=== PATIENT | female | born 1975 | race Caucasian/White ===

== ENCOUNTER 2021-08-21 11:01 | Emergency (ER) | payer SELFPAY ==
[~2021-08-21] VITALS: Ht 165 cm; Wt 117.0 kg
--- NOTE | 2021-08-21 12:07 | ED General ---
General Chief Complaint: COVID19 Suspect/Confirmed Stated Complaint: SORE THROAT,COUGH,BEDOYA Nursing Triage Note: PT REPORTS COUGH, SORE THROAT, CONGESTION, HEADACHE X1 WEEK. PT WAS LAST TESTED FOR COVID ON 08/19 AND WAS NEGATIVE. PT HAS KNOWN CONTACTS WHO HAVE TESTED POSITIVE. Source of Information: Patient Exam Limitations: No Limitations (MARTINEZ LASSITER APRN) History of Present Illness Date Seen by Provider: Aug 21, 2021 Time Seen by Provider: 12:05 Initial Comments Headache, fever for about a week. 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 Timing/Duration: 1 Week Severity: Moderate Associated Systoms: Cough (MARTINEZ LASSITER APRN) Allergies and Home Medications Allergies Coded Allergies: Sulfa (Sulfonamide Antibiotics) (Verified Allergy, Severe, ANAPHYLAXIS, 09/14/05) carisoprodol (Verified Allergy, Severe, 08/21/21) STOPS BREATHING celecoxib (Verified Allergy, Severe, 08/21/21) STOPS BREATHING cephalexin (Verified Allergy, Mild, 08/21/21) RASH nitrofurantoin (Verified Allergy, Mild, RASH, 09/14/05) morphine (Verified Adverse Reaction, Unknown, 08/21/21) RASH/ITCHY FOR LARGE DOSES Uncoded Allergies: SURF DETERGENT (Allergy, Mild, HIVES, 09/13/05) Patient Home Medication List Home Medication List Reviewed: Yes (MARTINEZ LASSITER APRN) Review of Systems Review of Systems Constitutional: see HPI, fever, malaise, weakness EENTM: see HPI Respiratory: see HPI, cough Cardiovascular: no symptoms reported Genitourinary: no symptoms reported Musculoskeletal: no symptoms reported Skin: no symptoms reported Psychiatric/Neurological: No Symptoms Reported Hematologic/Lymphatic: No Symptoms Reported Immunological/Allergic: no symptoms reported (MARTINEZ LASSITER APRN) Past Xjdpvpv-Xibikf-Hzsust Hx Patient Social History Tobacco Use?: No Substance use?: No Alcohol Use?: Yes Alcohol Frequency: Rarely Pt feels they are or have been: No (MARTINEZ LASSITER APRN) Immunizations Up To Date Second COVID19 Vaccination Dario: SEPTEMBER 2020 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 oz. kg; 42.00 BMI Method: General Appearance: No Apparent Distress, WD/WN HEENT: PERRL/EOMI, Other (DM obscured by cerumen bilaterally) Respiratory: No Accessory Muscle Use, No Respiratory Distress Cardiovascular: Regular Rate, Rhythm, Normal Peripheral Pulses Gastrointestinal: Normal Bowel Sounds, Non Tender, Soft Extremity: Normal Capillary Refill, Normal Inspection Neurologic/Psychiatric: Alert, Oriented x3 Skin: Normal Color, Warm/Dry (MARTINEZ LASSITER APRN) Progress/Results/Core Measures Suspected Sepsis SIRS Temperature: Pulse: 88 Respiratory Rate: 18 Blood Pressure 161 /104 Mean: 123 (MARTINEZ LASSITER APRN) Results/Orders Lab Results Laboratory Tests Test 08/21/21 11:24 Range/Units Influenza Type A (RT-PCR) Detected H Not Detecte Influenza Type B (RT-PCR) Not Detected Not Detecte SARS-CoV-2 RNA (RT-PCR) Not Detected Not Detecte (CHAVA GOODE MD) Vital Signs/I&O 08/21/21 08/21/21 08/21/21 11:12 12:07 12:10 Temp 36.7 36.7 Pulse 88 90 Resp 18 18 B/P (MAP) 161/104 (123) 168/96 Pulse Ox 100 100 O2 Delivery Room Air Room Air Room Air (CHAVA GOODE MD) Vital Signs/I&O Capillary Refill : Less Than 3 Seconds (MARTINEZ LASSITER APRN) Blood Pressure Mean: 123 Departure Impression Primary Impression: Influenza A Disposition: 01 HOME, SELF-CARE Condition: Stable Departure-Patient Inst. Decision time for Depature: 12:06 (MARTINEZ LASSITER APRN) Referrals: NO,LOCAL PHYSICIAN (PCP/Family) Primary Care Physician Patient Instructions: Flu, Adult ED Add. Discharge Instructions: 1. Tylenol and ibuprofen for pain and fever control. Return to ER for any concerns. All discharge instructions reviewed with patient and/or family. Voiced understanding. Work/School Note: Work Release Form Date Seen in the Emergency Department: Aug 21, 2021 Return to Work: Aug 24, 2021 ATTENDING PHYSICIAN NOTE: I was physically present as attending physician in the emergency department during the care of this patient, but I was not directly involved in the decision making or delivery of care for this patient. (CHAVA GOODE MD) MARTINEZ LASSITER APRN Aug 21, 2021 12:07 CHAVA GOODE MD Aug 21, 2021 19:09
[2021-08-21 12:10] VITALS: BP 168/96
== END 2021-08-21 12:12 | disposition home or self-care (01) ==
LOC: ER 11:01
DX: J10.1 Influenza due to other identified influenza virus with other respiratory manifestations (principal); Z20.822 Contact with and (suspected) exposure to COVID-19
CPT/HCPCS: 87636; 99283

== ENCOUNTER 2021-09-06 21:05 | Emergency (ER) | payer SELFPAY ==
[2021-09-06] MEDS ORDERED: AMOX500C2 PO (21:22)
[2021-09-06] MEDS ORDERED: METH4TAB10 PO (21:22)
--- NOTE | 2021-09-06 21:22 | ED General ---
General Chief Complaint: General Problems/Pain Stated Complaint: SOB/CHEST BURNING/COUGH/SORE THROAT X 1 MONTH Source of Information: Patient Exam Limitations: No Limitations (MARTINEZ LASSITER APRN) History of Present Illness Date Seen by Provider: Sep 06, 2021 Time Seen by Provider: 21:19 Initial Comments To ER by private vehicle with reports of ongoing shortness of breath chest burning cough that is nonproductive. She was seen here 2 weeks ago diagnosed with influenza a tested negative for Covid. However she fails to improve and tonight she noticed some black mold in her house. She notified her landlord of it but is scared that this might be contributing to her symptoms. No fevers. She does not smoke. Timing/Duration: 1-2 Days Severity: Moderate Associated Systoms: Cough (MARTINEZ LASSITER APRN) Allergies and Home Medications Allergies Coded Allergies: Sulfa (Sulfonamide Antibiotics) (Verified Allergy, Severe, ANAPHYLAXIS, 09/14/05) carisoprodol (Verified Allergy, Severe, 08/21/21) STOPS BREATHING celecoxib (Verified Allergy, Severe, 08/21/21) STOPS BREATHING cephalexin (Verified Allergy, Mild, 08/21/21) RASH nitrofurantoin (Verified Allergy, Mild, RASH, 09/14/05) morphine (Verified Adverse Reaction, Unknown, 08/21/21) RASH/ITCHY FOR LARGE DOSES Uncoded Allergies: SURF DETERGENT (Allergy, Mild, HIVES, 09/13/05) Patient Home Medication List Home Medication List Reviewed: Yes (MARTINEZ LASSITER APRN) Amoxicillin (Amoxicillin) 500 Mg Capsule, 500 MG PO TID Prescribed by: MARTINEZ LASSITER on 09/06/212121 Methylprednisolone (Methylprednisolone Dose Pack) 4 Mg Tab.ds.pk, 4 MG PO UD Prescribed by: MARTINEZ LASSITER on 09/06/212121 Review of Systems Review of Systems Constitutional: see HPI EENTM: see HPI Respiratory: see HPI, cough Cardiovascular: no symptoms reported Genitourinary: no symptoms reported Musculoskeletal: no symptoms reported Skin: no symptoms reported Psychiatric/Neurological: No Symptoms Reported Hematologic/Lymphatic: No Symptoms Reported (MARTINEZ LASSITER APRN) Past Wsxihep-Uqfuwz-Fbzthz Hx Immunizations Up To Date Second COVID19 Vaccination Dario: SEPTEMBER 2020 (MARTINEZ LASSITER APRN) Past Medical History Surgery/Hospitalization HX: NEUROPATHY, ANXIETY/DEPRESSION (MARTINEZ LASSITER APRN) Physical Exam Vital Signs Vital Signs - First Documented (CHAVA GOODE MD) Vital Signs Capillary Refill : (MARTINEZ LASSITER APRN) Height, Weight, BMI Height: '" Weight: lbs. oz. kg; 42.00 BMI Method: General Appearance: No Apparent Distress, WD/WN, Other (Lungs are clear heart rate 95 oxygen 97%. She is hypertensive at 190/110.) Eyes: Bilateral Eye Normal Inspection, Bilateral Eye PERRL, Bilateral Eye EOMI Neck: Full Range of Motion, Normal Inspection Respiratory: No Accessory Muscle Use, No Respiratory Distress Cardiovascular: Regular Rate, Rhythm, Normal Peripheral Pulses Gastrointestinal: Normal Bowel Sounds, Non Tender, Soft Neurologic/Psychiatric: Alert, Oriented x3 Skin: Normal Color, Warm/Dry (MARTINEZ LASSITER APRN) Progress/Results/Core Measures Suspected Sepsis SIRS Temperature: Pulse: Respiratory Rate: Blood Pressure / Mean: (MARTINEZ LASSITER APRN) Results/Orders Vital Signs/I&O 09/06/21 09/06/21 09/06/21 21:14 21:14 22:00 Temp 36.2 36.2 Pulse 97 86 Resp 18 18 B/P (MAP) 193/89 (123) 146/88 Pulse Ox 98 97 O2 Delivery Room Air Room Air Room Air (CHAVA GOODE MD) Vital Signs/I&O Capillary Refill : (MARTINEZ LASSITER APRN) Departure Impression Primary Impression: Bronchitis Disposition: 01 HOME, SELF-CARE Condition: Stable Departure-Patient Inst. Decision time for Depature: 21:21 (MARTINEZ LASSITER APRN) Referrals: NO,LOCAL PHYSICIAN (PCP/Family) Primary Care Physician Patient Instructions: Acute Bronchitis, Adult (DC) Add. Discharge Instructions: 1. Antibiotics and steroids as directed. Inhaler as directed. Follow-up with your doctor later this week. If you do not have one a list has been provided for you. Call one of your choosing to make an appointment to be seen. All discharge instructions reviewed with patient and/or family. Voiced understanding. Scripts Methylprednisolone (Methylprednisolone Dose Pack) 4 Mg Tab.ds.pk 4 MG PO UD for 6 Days, #21 PKG PER DOSE PACK INSTRUCTIONS Prov: MARTINEZ LASSITER APRN 09/06/21 Amoxicillin (Amoxicillin) 500 Mg Capsule 500 MG PO TID, #21 CAP 0 Refills Prov: MARTINEZ LASSITER APRN 09/06/21 ATTENDING PHYSICIAN NOTE: I was physically present as attending physician in the emergency department during the care of this patient, but I was not directly involved in the decision making or delivery of care for this patient. (CHAVA GOODE MD) MARTINEZ LASSITER APRN Sep 06, 2021 21:22 CHAVA GOODE MD Sep 07, 2021 04:57
--- NOTE | 2021-09-06 21:37 | Diagnostic Imaging Report ---
INDICATION: Shortness of air, cough and congestion. TECHNIQUE: Single view chest 9:41 PM. CORRELATION STUDY: None FINDINGS: The heart size, mediastinal configuration and pulmonary vascularity are within normal limits. The lungs are clear with no consolidating infiltrate. There is no significant effusion or pneumothorax. IMPRESSION: 1. Negative appearing portable chest. Dictated by: Dictated on workstation # [id number]
[2021-09-06] MEDS ORDERED: RX-ALBUTEROL INHALER 8.5 GM HFA (PROAIR) IH STA (21:39)
[2021-09-06 22:00] VITALS: BP 146/88
== END 2021-09-06 22:00 | disposition home or self-care (01) ==
LOC: EDUNIT# 21:05 → ER 21:06
DX: J20.9 Acute bronchitis, unspecified (principal); Z20.822 Contact with and (suspected) exposure to COVID-19
CPT/HCPCS: 71045

== ENCOUNTER 2023-03-06 13:12 | Emergency (ER) | payer BC, OTHER ==
[~2023-03-06] VITALS: Ht 165.1 cm; Wt 92.5 kg
[~2023-03-06 13:12] MED LIST: AMOX500C2 PO; METH4TAB10 PO
[2023-03-06 13:25] VITALS: BP 125/74
--- NOTE | 2023-03-06 13:42 | ED EENT ---
History of Present Illness General Chief Complaint: Dental Problems/Pain Stated Complaint: TOOTH PAIN Nursing Triage Note: PT AMBULATE TO ROOM 08 WITH C/O DENTAL ABSCESS. PT REPORTS BEING SEEN AT THE MEDICAL CENTER YESTERDAY FOR SAME C/O. Source: patient Exam Limitations: no limitations (AYLEEN APARICIO APRN) History of Present Illness Date Seen by Provider: Mar 06, 2023 Time Seen by Provider: 13:29 Initial Comments 47-year-old female presents to the ER with complaint of left lower dental pain starting on Tuesday. She states that she had swelling in her jaw at that time. She was seen at the urgent care yesterday and was told that she has TMJ. She states that yesterday the swelling had improved, and that they did not see a dental abscess, so they did not start her on any antibiotics. She is here today because pain has worsened, the swelling has returned, and she can now feel a bump along her gums. She denies any fevers. (AYLEEN APARICIO APRN) Allergies and Home Medications Allergies Coded Allergies: Sulfa (Sulfonamide Antibiotics) (Verified Allergy, Severe, ANAPHYLAXIS, 09/14/05) carisoprodol (Verified Allergy, Severe, 08/21/21) STOPS BREATHING celecoxib (Verified Allergy, Severe, 08/21/21) STOPS BREATHING cephalexin (Verified Allergy, Mild, 08/21/21) RASH nitrofurantoin (Verified Allergy, Mild, RASH, 09/14/05) morphine (Verified Adverse Reaction, Unknown, 08/21/21) RASH/ITCHY FOR LARGE DOSES Uncoded Allergies: SURF DETERGENT (Allergy, Mild, HIVES, 09/13/05) Patient Home Medication List Home Medication List Reviewed: Yes (AYLEEN APARICIO APRN) Amoxicillin (Amoxicillin) 500 Mg Capsule, 500 MG PO TID Prescribed by: MARTINEZ LASSITER on 09/06/212121 Amoxicillin/Potassium Clav (Amox Tr-K Clv 875-125 mg Tab) 875 Mg-125 Mg Tablet, 1 EACH PO BID Prescribed by: Ayleen Ozuna on 03/06/23 1348 Methylprednisolone (Methylprednisolone Dose Pack) 4 Mg Tab.ds.pk, 4 MG PO UD Prescribed by: MARTINEZ LASSITER on 09/06/212121 Review of Systems Review of Systems Constitutional: see HPI (AYLEEN APARICIO APRN) Past Kyspyur-Yezqme-Zdorku Hx Patient Social History Tobacco Use?: No Smoking Status: Never a Smoker Smokeless Tobacco Frequency: Never a User Use of E-Cig and/or Vaping dev: No Use of E-Cig and/or Vaping Aramis: Never a User Substance use?: No Alcohol Use?: Yes Alcohol Frequency: Once in a while Pt feels they are or have been: No (AYLEEN APARICIO APRN) Immunizations Up To Date Second COVID19 Vaccination Dario: SEPTEMBER 2020 (AYLEEN APARICIO APRN) Past Medical History Surgery/Hospitalization HX: NEUROPATHY, ANXIETY/DEPRESSION (AYLEEN APARICIO APRN) Physical Exam Vital Signs Vital Signs - First Documented 03/06/23 13:25 Temp 36.6 Pulse 900 Resp 19 B/P (MAP) 125/74 (91) O2 Delivery Room Air (CHAVA GOODE MD) Height, Weight, BMI Height: '" Weight: lbs. oz. kg; 33.00 BMI Method: General Appearance: WD/WN, no apparent distress Mouth/Throat: mandibular swelling (mild), other (endentulous, mild swelling to right lower lateral gums, no area of fluctuation) Neck: supple, normal inspection Cardiovascular: regular rate, rhythm Respiratory: lungs clear, normal breath sounds, no respiratory distress, no a ccessory muscle use Neurologic/Psychiatric: alert Skin: normal color, warm/dry (AYLEEN APARICIO APRN) Progress/Results/Core Measures Results/Orders Blood Pressure Mean: 91 Progress Progress Note : Progress Note Patient seen and evaluated, resting comfortably in bed, no acute distress. Small palpable abscess to right gums. No area of fluctuation to drain abscess. Will prescribe antibiotic for dental abscess. Discharge instructions and return precautions provided. (AYLEEN APARICIO APRN) Departure Impression Primary Impression: Gingival abscess Disposition: HOME, SELF-CARE Condition: Stable Departure-Patient Inst. Decision time for Depature: 13:44 (AYLEEN APARICIO APRN) Referrals: NO,LOCAL PHYSICIAN (PCP/Family) Primary Care Physician Patient Instructions: Tooth Abscess (DC) Add. Discharge Instructions: Complete full course of antibiotic as directed. Follow-up with your primary care provider or dentist. Return for significant swelling, severe pain, fever, or any other new, concerning, or worsening symptoms. All discharge instructions reviewed with patient and/or family. Voiced understanding. Scripts Amoxicillin/Potassium Clav (Amox Tr-K Clv 875-125 mg Tab) 875 Mg-125 Mg Tablet 1 EACH PO BID for 7 Days, #14 TAB 0 Refills Prov: AYLEEN APARICIO APRN 03/06/23 ATTENDING PHYSICIAN NOTE: I was physically present as attending physician in the emergency department during the care of this patient, but I was not directly involved in the decision making or delivery of care for this patient. (CHAVA GOODE MD) AYLEEN APARICIO APRN Mar 06, 2023 13:42 CHAVA GOODE MD Mar 07, 2023 07:11
[2023-03-06] MEDS ORDERED: AMOX1TAB12 PO (13:48)
== END 2023-03-06 13:52 | disposition home or self-care (01) ==
LOC: EDUNIT# 13:12 → ER 13:14
DX: K05.20 Aggressive periodontitis, unspecified (principal); Z88.2 Allergy status to sulfonamides; Z88.1 Allergy status to other antibiotic agents
CPT/HCPCS: 99281

== ENCOUNTER 2023-04-14 18:44 | Emergency (ER) | payer BC ==
[~2023-04-14] VITALS: Ht 165.1 cm; Wt 102.5 kg
[~2023-04-14 18:44] MED LIST changes: +AMOX1TAB12 PO
[2023-04-14 18:56] VITALS: BP 178/96
--- NOTE | 2023-04-14 19:05 | ED Cough/URI ---
General Chief Complaint: COVID19 Suspect/Confirmed Stated Complaint: NAUSEA/COUGH/HEADACHE/SORE THROAT/BODYACHES Source: patient Exam Limitations: no limitations (ASUNCION QUIGLEY) History of Present Illness Date Seen by Provider: Apr 14, 2023 Time Seen by Provider: 19:03 Initial Comments Patient is a 48-year-old female presents ED with flulike symptoms. Symptoms started around 12:00 this morning. Body aches, chills, weakness fatigue vomiting diarrhea cough. She states she has had at least 3 episodes of vomiting. Has been able to eat and drink but remains nauseous at this time. Few episodes of watery diarrhea without any blood or mucus. She reports nasal congestion mild wet cough without shortness of breath or wheezing, chest pain or abdominal pain. She took ibuprofen around 5 PM. She feels feverish. Potential exposure to COVID at work. She states she is urinating without any pain or decreased urine output. She reports headache and sore throat. Denies of any ear pain, visual changes, unilateral muscle weakness or sensory changes, history of CHF, coronary artery disease, asthma or COPD (ASUNCION QUIGLEY) Allergies and Home Medications Allergies Coded Allergies: Sulfa (Sulfonamide Antibiotics) (Verified Allergy, Severe, ANAPHYLAXIS, 09/14/05) carisoprodol (Verified Allergy, Severe, 08/21/21) STOPS BREATHING celecoxib (Verified Allergy, Severe, 08/21/21) STOPS BREATHING cephalexin (Verified Allergy, Mild, 08/21/21) RASH nitrofurantoin (Verified Allergy, Mild, RASH, 09/14/05) morphine (Verified Adverse Reaction, Unknown, 08/21/21) RASH/ITCHY FOR LARGE DOSES Uncoded Allergies: SURF DETERGENT (Allergy, Mild, HIVES, 09/13/05) Patient Home Medication List Home Medication List Reviewed: Yes (ASUNCION QUIGLEY) Amoxicillin (Amoxicillin) 500 Mg Capsule, 500 MG PO TID Prescribed by: MARTINEZ LASSITER on 09/06/212121 Amoxicillin/Potassium Clav (Amox Tr-K Clv 875-125 mg Tab) 875 Mg-125 Mg Tablet, 1 EACH PO BID Prescribed by: Ayleen Ozuna on 03/06/23 1348 Methylprednisolone (Methylprednisolone Dose Pack) 4 Mg Tab.ds.pk, 4 MG PO UD Prescribed by: MARTINEZ LASSITER on 09/06/212121 Ondansetron (Ondansetron Odt) 4 Mg Tab.rapdis, 4 MG SL Q4H PRN for NAUSEA/VOMITI NG Prescribed by: ADITYA VERMA on 04/14/231950 Review of Systems Review of Systems Constitutional: chills; No diaphoresis; fever, malaise, weakness EENTM: No ear pain, No blurred vision, No double vision Respiratory: cough; No dyspnea on exertion Cardiovascular: No chest pain Gastrointestinal: No abdominal pain; diarrhea, nausea, vomiting Genitourinary: No decreased output, No discharge Musculoskeletal: No back pain, No joint pain, No joint swelling Skin: No change in color, No change in hair/nails (ASUNCION QUIGLEY) All Other Systems Reviewed Negative Unless Noted: Yes (ASUNCION QUIGLEY) Past Yaaqrxa-Vgffjy-Hxvolp Hx Immunizations Up To Date Second COVID19 Vaccination Dario: SEPTEMBER 2020 (ASUNCION QUIGLEY) Past Medical History Surgery/Hospitalization HX: NEUROPATHY, ANXIETY/DEPRESSION (ASUNCION QUIGLEY) Physical Exam Vital Signs - First Documented 04/14/23 18:56 Temp 36.5 Pulse 94 Resp 18 B/P (MAP) 178/96 (123) Pulse Ox 100 O2 Delivery Room Air (ANNE,NISSA K DO) Capillary Refill : (ASUNCOIN QUIGLEY) Height: '" Weight: lbs. oz. kg; 33.00 BMI Method: General Appearance: WD/WN, no apparent distress Eyes: Bilateral Eye Normal Inspection, Bilateral Eye PERRL, Bilateral Eye EOMI HEENT: PERRL/EOMI, normal ENT inspection, TMs normal Neck: non-tender, full range of motion Respiratory: chest non-tender, lungs clear, normal breath sounds, no respiratory distress, no accessory muscle use Cardiovascular: regular rate, rhythm, no edema, no gallop, no JVD Gastrointestinal: normal bowel sounds, non tender, soft, no organomegaly Extremities: normal range of motion, non-tender, normal inspection, no pedal edema, no calf tenderness Neurologic/Psychiatric: life skills specialist II-XII nml as tested, no motor/sensory deficits, alert, normal mood/affect, oriented x 3 Skin: normal color, warm/dry (ASUNCION QUIGLEY) Progress/Results/Core Measures Suspected Sepsis SIRS Temperature: Pulse: Respiratory Rate: Blood Pressure / Mean: (ASUNCION QUIGLEY) Results/Orders Lab Results Laboratory Tests Test 04/14/23 19:00 Range/Units Influenza Type A (RT-PCR) Not Detected Not Detecte Influenza Type B (RT-PCR) Not Detected Not Detecte SARS-CoV-2 RNA (RT-PCR) Not Detected Not Detecte (NISSA RODRÍGUEZ DO) Medications Given in ED Current Medications Medications Dose Ordered Sig/Vy Route Start Time Stop Time Status Last Admin Dose Admin Acetaminophen 1,000 mg ONCE ONCE PO 04/14/23 19:15 04/14/23 19:16 DC 04/14/23 19:13 1,000 MG Ondansetron HCl 4 mg ONCE ONCE PO 04/14/23 19:15 04/14/23 19:16 DC 04/14/23 19:13 4 MG (NISSA RODRÍGUEZ DO) Vital Signs/I&O 04/14/23 04/14/23 18:56 18:56 Temp 36.5 Pulse 94 Resp 18 B/P (MAP) 178/96 (123) Pulse Ox 100 O2 Delivery Room Air Room Air (NISSA RODRÍGUEZ DO) Vital Signs/I&O Capillary Refill : (ASUNCION QUIGLEY) Departure Communication (PCP) Patient with flulike symptoms that started 12:00 this morning. Vomiting diarrhea cough sore throat headache. Patient vital signs stable. Slightly hypertensive. Patient does not appear toxic or septic. Tolerating fluids and eating but still remains nauseous. No specific chest pain or abdominal pain. Patient received oral Zofran. COVID influenza was ordered which were negative. Exposure to COVID at work. Suspect that this is viral in nature. Potentially could still be COVID with a potential decrease viral load at this time. Recommend recheck in 2 days. Provided work note. Will discharge with Zofran. Alternate Tylenol and ibuprofen. If any developing chest pain or shortness of breath or unable to tolerate fluids to return back to ED. Follow-up your PCP in 2 days for reevaluation. Patient received Tylenol for the body aches here in the ED. She just took ibuprofen right before arrival. (ASUNCION QUIGLEY) Impression Primary Impression: Viral syndrome Disposition: HOME, SELF-CARE Condition: Stable Departure-Patient Inst. Decision time for Depature: 19:50 (ASUNCION QUIGLEY) Referrals: ELIZABETH OVALLES APRN (PCP/Family) Primary Care Physician Patient Instructions: Viral Syndrome (DC) Add. Discharge Instructions: Tested negative for COVID influenza. Suspect this is viral. Recommend rest for the next 2 days. Recommend staying hydrated. Alternate Tylenol ibuprofen. Zo jose guadalupe for nausea. If any worsening symptoms return back to ED All discharge instructions reviewed with patient and/or family. Voiced understanding. Scripts Ondansetron (Ondansetron Odt) 4 Mg Tab.rapdis 4 MG SL Q4H PRN for NAUSEA/VOMITING, #8 TAB Prov: ASUNCION QUIGLEY 04/14/23 Work/School Note: Work Release Form Date Seen in the Emergency Department: Apr 14, 2023 Return to Work: Apr 18, 2023 ATTENDING PHYSICIAN NOTE: I WAS PHYSICALLY PRESENT ER PHYSICIAN, BUT I WAS NOT INVOLVED IN ANY DECISION MAKING OR ANY CARE OF THIS PATIENT AND I AM NOT COLLABORATING PHYSICIAN. (NISSA RODRÍGUEZ DO) ASUNCION QUIGLEY Apr 14, 2023 19:05 NISSA RODRÍGUEZ DO Apr 15, 2023 04:47
[2023-04-14] MEDS ORDERED: ONDANSETRON 4 MG ORAL DISSOLVE TABLET PO ONE (19:15)
[2023-04-14] MEDS ORDERED: ACETAMINOPHEN 500 MG TABLET PO ONE (19:15)
[2023-04-14] MEDS ORDERED: ONDA4TAB11 SL (19:51)
== END 2023-04-14 19:58 | disposition home or self-care (01) ==
LOC: EDUNIT# 18:44 → ER 18:48
DX: B34.9 Viral infection, unspecified (principal); R09.81 Nasal congestion; M79.10 Myalgia, unspecified site; R53.1 Weakness; R53.83 Other fatigue; R19.7 Diarrhea, unspecified; R68.83 Chills (without fever); R05.8 Other specified cough; R51.9 Headache, unspecified; R11.2 Nausea with vomiting, unspecified; Z20.822 Contact with and (suspected) exposure to COVID-19
CPT/HCPCS: 87636; 99283

== ENCOUNTER 2023-07-04 08:18 | Emergency (ER) | payer BC ==
[2023-07-04] VITALS (9 sets, daily range): BP systolic 126–146; BP diastolic 65–84
[~2023-07-04 08:18] MED LIST changes: +ONDA4TAB11 SL
--- NOTE | 2023-07-04 08:45 | ED General ---
General Chief Complaint: Head/Cervical Problems Stated Complaint: FALL | DIZZINESS | HEAD INJ | 2 DAYS AGO Nursing Triage Note: PT AMB TO [facility] CO OF DIZZINESS THIS AM, PT STATES HAD FALL ON TUESDAY FACE PLANTED, TRIPPED AND FELL NOT D/T DIZZINESS DENIES LOC. PT HAS BLACK EYES, PT DENIES PAIN AT THIS X. Source of Information: Patient Exam Limitations: No Limitations History of Present Illness Date Seen by Provider: Jul 04, 2023 Time Seen by Provider: 08:34 Initial Comments 48-year-old female presents to the emergency department today for dizziness. She initially had an episode on Tuesday morning in which she bent over and stood up quickly, felt "woozy" and dizzy, lightheaded. No chest pain or shortness of breath. She got out of the car later that day and tripped and hit her face, which she does not attribute to her dizziness whatsoever. Today she was at work and went from sitting to standing and had an episode of dizziness once again. She describes these episodes as the room spinning and feeling as though she may pass out. 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 No fevers or chills. No abdominal pain or changes in bowel or bladder habits. She has never had episodes of dizziness like this in the past. All other systems reviewed and negative except documented per HPI. Voice recognition software was used to help create this chart Allergies and Home Medications Allergies Coded Allergies: Sulfa (Sulfonamide Antibiotics) (Verified Allergy, Severe, ANAPHYLAXIS, 09/14/05) carisoprodol (Verified Allergy, Severe, 08/21/21) STOPS BREATHING celecoxib (Verified Allergy, Severe, 08/21/21) STOPS BREATHING cephalexin (Verified Allergy, Mild, 08/21/21) RASH nitrofurantoin (Verified Allergy, Mild, RASH, 09/14/05) morphine (Verified Adverse Reaction, Unknown, 08/21/21) RASH/ITCHY FOR LARGE DOSES Patient Home Medication List Home Medication List Reviewed: Yes Amoxicillin (Amoxicillin) 500 Mg Capsule, 500 MG PO TID Prescribed by: MARTINEZ LASSITER on 09/06/212121 Amoxicillin/Potassium Clav (Amox Tr-K Clv 875-125 mg Tab) 875 Mg-125 Mg Tablet, 1 EACH PO BID Prescribed by: Ayleen Ozuna on 03/06/23 1348 Methylprednisolone (Methylprednisolone Dose Pack) 4 Mg Tab.ds.pk, 4 MG PO UD Prescribed by: MARTINEZ LASSITER on 09/06/212121 Ondansetron (Ondansetron Odt) 4 Mg Tab.rapdis, 4 MG SL Q4H PRN for NAUSEA/VOMITING Prescribed by: ADITYA VERMA on 04/14/231950 Review of Systems Review of Systems Constitutional: see HPI Past Oweekyp-Kjiqxc-Bqcsmq Hx Patient Social History Tobacco Use?: No Substance use?: No Alcohol Use?: Yes Alcohol Frequency: Rarely Pt feels they are or have been: No Immunizations Up To Date First/Initial COVID19 Vaccinat: SEPTEMBER 2020 Second COVID19 Vaccination Dario: SEPTEMBER 2020 Third COVID19 Vaccination Date: SEPTEMBER 2020 Past Medical History Surgery/Hospitalization HX: NEUROPATHY, ANXIETY/DEPRESSION, MIGRAINES, ANEMIA, GASTRIC BY PASS Physical Exam Vital Signs Vital Signs - First Documented 07/04/23 08:25 Temp 36.7 Pulse 81 Resp 18 B/P (MAP) 136/90 (105) Pulse Ox 100 Capillary Refill : Less Than 3 Seconds Height, Weight, BMI Height: '" Weight: lbs. oz. kg; BMI Method: General Appearance: No Apparent Distress, WD/WN HEENT: PERRL/EOMI, TMs Normal, Normal ENT Inspection, Pharynx Normal, Other (Bilateral fatigable nystagmus left greater than right) Neck: Normal Inspection, Non Tender, Supple Respiratory: Chest Non Tender, Lungs Clear, Normal Breath Sounds, No Accessory Muscle Use, No Respiratory Distress Cardiovascular: Regular Rate, Rhythm, No Murmur, Normal Peripheral Pulses Gastrointestinal: Normal Bowel Sounds, No Organomegaly, Non Tender, Soft Back: Normal Inspection, No Vertebral Tenderness Extremity: Normal Capillary Refill, Normal Inspection, Non Tender, No Calf Tenderness Neurologic/Psychiatric: Alert, Oriented x3, No Motor/Sensory Deficits Skin: Normal Color, Warm/Dry Progress/Results/Core Measures Suspected Sepsis SIRS Temperature: Pulse: 81 Respiratory Rate: 18 Laboratory Tests 07/04/23 08:50: White Blood Count 5.0 Blood Pressure 136 /90 Mean: 105 Laboratory Tests 07/04/23 08:50: Creatinine 0.80, Platelet Count 299, Total Bilirubin 0.7 Results/Orders Lab Results Laboratory Tests Test 07/04/23 08:50 Range/Units White Blood Count 5.0 4.3-11.0 10^3/uL Red Blood Count 3.85 3.80-5.11 10^6/uL Hemoglobin 6.3 *L 11.5-16.0 g/dL Hematocrit 25 L 35-52 % Mean Corpuscular Volume 66 L 80-99 fL Mean Corpuscular Hemoglobin 16 L 25-34 pg Mean Corpuscular Hemoglobin Concent 25 L 32-36 g/dL Red Cell Distribution Width 20.8 H 10.0-14.5 % Platelet Count 299 130-400 10^3/uL Mean Platelet Volume 9.6 9.0-12.2 fL Immature Granulocyte % (Auto) 0 % Neutrophils (%) (Auto) 74 42-75 % Lymphocytes (%) (Auto) 13 12-44 % Monocytes (%) (Auto) 11 0-12 % Eosinophils (%) (Auto) 1 0-10 % Basophils (%) (Auto) 1 0-10 % Neutrophils # (Auto) 3.7 1.8-7.8 10^3/uL Lymphocytes # (Auto) 0.7 L 1.0-4.0 10^3/uL Monocytes # (Auto) 0.6 0.0-1.0 10^3/uL Eosinophils # (Auto) 0.0 0.0-0.3 10^3/uL Basophils # (Auto) 0.0 0.0-0.1 10^3/uL Immature Granulocyte # (Auto) 0.0 0.0-0.1 10^3/uL Sodium Level 135 135-145 MMOL/L Potassium Level 3.5 L 3.6-5.0 MMOL/L Chloride Level 102 98-107 MMOL/L Carbon Dioxide Level 21 21-32 MMOL/L Anion Gap 12 5-14 MMOL/L Blood Urea Nitrogen 7 7-18 MG/DL Creatinine 0.80 0.60-1.30 MG/DL Estimat Glomerular Filtration Rate 90 BUN/Creatinine Ratio 9 Glucose Level 104 70-105 MG/DL Calcium Level 9.3 8.5-10.1 MG/DL Corrected Calcium 9.0 8.5-10.1 MG/DL Magnesium Level 2.2 1.6-2.4 MG/DL Total Bilirubin 0.7 0.1-1.0 MG/DL Aspartate Amino Transf (AST/SGOT) 16 5-34 U/L Alanine Aminotransferase (ALT/SGPT) 18 0-55 U/L Alkaline Phosphatase 194 H 40-136 U/L Total Protein 8.6 H 6.4-8.2 GM/DL Albumin 4.4 3.2-4.5 GM/DL My Orders Orders - ARNOLD MENA DO Comprehensive Metabolic Panel (07/04/23 08:45) Ekg Tracing (07/04/23 08:45) Ed Iv/Invasive Line Start (07/04/23 08:45) Cbc And Automated Diff (07/04/23 08:45) Ct Head Wo (07/04/23 08:45) Type And Screen (07/04/23 09:05) Vital Signs: Special (Order) (07/04/23 09:06) Consent-Obtain Consent For (07/04/23 09:06) Monitor S/S Transfusion Reacti (07/04/23 09:06) Ns Iv 500 Ml (Ns Iv 500 Ml) (07/04/23 09:15) Red Cells Leukocytes Reduced (07/04/23 09:06) Magnesium (07/04/23 09:13) Acetaminophen Tablet (Acetaminophen Ta (07/04/23 11:00) General/Regular (07/04/23 Lunch) Monitor S/S Transfusion Reacti (07/04/23 13:00) Ns Iv 500 Ml (Ns Iv 500 Ml) (07/04/23 13:00) Red Cells Leukocytes Reduced (07/04/23 13:00) Medications Given in ED Current Medications Medications Dose Ordered Sig/Vy Route Start Time Stop Time Status Last Admin Dose Admin Acetaminophen 1,000 mg ONCE ONCE PO 07/04/23 11:00 07/04/23 11:01 DC 07/04/23 11:00 1,000 MG Vital Signs/I&O 07/04/23 07/04/23 07/04/23 07/04/23 08:25 08:43 10:55 11:09 Temp 36.7 36.3 36.3 Pulse 81 80 77 75 84 91 Resp 18 16 18 B/P (MAP) 136/90 (105) 141/76 (97) 133/80 128/75 132/78 (96) 131/78 (95) Pulse Ox 100 95 95 07/04/23 07/04/23 07/04/23 07/04/23 12:31 12:42 13:45 14:00 Temp 36.5 36.7 36.5 Pulse 71 75 82 84 79 91 Resp 18 16 16 B/P (MAP) 135/77 126/71 (89) 138/65 140/74 137/78 (97) 129/84 (99) Pulse Ox 95 99 Capillary Refill : Less Than 3 Seconds Blood Pressure Mean: 105 ECG Comment Underlying sinus rhythm with a rate of 73 bpm. There does seem to be a brief run of atrial tachycardia as witnessed in lead II, 3 beats nonsustained. There are otherwise normal intervals. Slight left axis deviation. No obvious ST or T wave abnormalities. No STEMI. Critical Care Note Critical Care Total Time (minutes) 60 Departure Communication (Admissions) Patient is hemodynamically stable. CT scan is negative on my independent review of imaging as well as radiology read. She has significant anemia which she has had in the past, chalked up to iron deficiency previous. She is not on any current iron supplementation as symptoms seem to have resolved spontaneously after her prior episode. She tells me she did require 3 unit blood transfusion at that time. She denies any bloody or dark tarry stools, any vaginal bleeding or other source of bleeding at this time. She is asymptomatic when lying in bed but does get dizzy if she gets up. I have ordered 1 unit of PRBC for transfusion at this time. I spoke to Dr. Oconnor. She request we see how she does after transfusion. If feeling better she recommends discharge and follow- up with the [facility] clinic. If not improved we will likely need to admit her. Patient still having significant dizziness after first unit of PRBCs. She was on the fence about admission versus going home but did not fully feel comfortable going home. With that we went ahead and gave her another unit of packed red blood cells which improved her symptoms dramatically. She is no longer have any dizziness. Advise she follow-up with her primary doctor for possible further testing, potential iron infusions. She states understanding. She is discharged in stable condition. Impression Primary Impression: Microcytic anemia Additional Impression: Dizziness Disposition: HOME, SELF-CARE Condition: Stable Departure-Patient Inst. Referrals: ELIZABETH OVALLES APRN (PCP/Family) Primary Care Physician Patient Instructions: Anemia, Possibly From Low Iron, Adult ED Add. Discharge Instructions: Follow-up your primary doctor for further testing. I recommend you have your blood counts rechecked in 3 to 4 days. Return to the emergency department if recurrence of dizziness, shortness of breath or chest pain. All discharge instructions reviewed with patient and/or family. Voiced understanding. ARNOLD MENA DO Jul 04, 2023 08:45
[2023-07-04 09:00] LABS: BASOPHILS % (AUTO) 1 % (0-10); EOSINOPHILS % (AUTO) 1 % (0-10); HEMATOCRIT 25 % (35-52); LYMPHOCYTES # (AUTO) 0.7 10^3/uL (1.0-4.0); LYMPHOCYTES % (AUTO) 13 % (12-44); MEAN CORPUSCULAR HEMOGLOBIN 16 pg (25-34); MEAN CORPUSCULAR HGB CONC 25 g/dL (32-36); MEAN CORPUSCULAR VOLUME 66 fL (80-99); MEAN PLATELET VOLUME 9.6 fL (9.0-12.2); MONOCYTES # (AUTO) 0.6 10^3/uL (0.0-1.0); MONOCYTES % (AUTO) 11 % (0-12); NEUTROPHILS # (AUTO) 3.7 10^3/uL (1.8-7.8); NEUTROPHILS % (AUTO) 74 % (42-75); PLATELET COUNT 299 10^3/uL (130-400)
[2023-07-04 09:04] LABS: HEMOGLOBIN 6.3 g/dL (11.5-16.0)
[2023-07-04 09:07] LABS: ALBUMIN 4.4 GM/DL (3.2-4.5); POTASSIUM 3.5 MMOL/L (3.6-5.0)
[2023-07-04 09:08] LABS: CALCIUM 9.3 MG/DL (8.5-10.1)
[2023-07-04 09:10] LABS: TOTAL PROTEIN 8.6 GM/DL (6.4-8.2)
--- NOTE | 2023-07-04 09:10 | Diagnostic Imaging Report ---
PROCEDURE: CT head without contrast. TECHNIQUE: Multiple contiguous axial images were obtained through the brain without the use of intravenous contrast. Auto Exposure Controls were utilized during the CT exam to meet ALARA standards for radiation dose reduction. INDICATION: Fall, headache and dizziness. COMPARISON: None. Findings: The brain parenchyma is normal in attenuation. No intra- or extra-axial mass or fluid collection. No acute hemorrhage. The ventricles are normal in size, shape, and morphology. The charlton-white matter junction is normal. The subarachnoid cisterns are patent. The visualized paranasal sinuses are normal. The visualized portions of the orbits and globes are normal. The mastoid air cells are clear. The water tender topogram shows no lytic lesion or fracture. Impression: No acute intracranial process. Dictated by: Dictated on workstation # [id number]
[2023-07-04 09:11] LABS: BILIRUBIN,TOTAL 0.7 MG/DL (0.1-1.0)
[2023-07-04 09:13] LABS: CREATININE SERUM 0.8 MG/DL (0.60-1.30)
[2023-07-04] MEDS ORDERED: NS IV 500 ML 500 ML IV SCH ×2 (09:15→13:00)
[2023-07-04] MEDS ORDERED: ACETAMINOPHEN 500 MG TABLET PO ONE (11:00)
== END 2023-07-04 16:31 | disposition home or self-care (01) ==
LOC: EDUNIT# 08:18 → ER 08:20
DX: D50.9 Iron deficiency anemia, unspecified (principal); R42 Dizziness and giddiness
CPT/HCPCS: 70450; 80053; 82607; 82728; 83540; 83550; 83735; 85025; 86850; 86900; 86901; 86920; 93005; 99284; P9016; 36415